=== PATIENT | male | born 1995 | race Caucasian/White ===

== ENCOUNTER 2017-02-21 | Emergency (ER) | payer OTHER ==
[~2017-02-21] VITALS: Ht 185.4 cm; Wt 70.9 kg
[2017-02-21 00:16] VITALS: TEMP 36.7; Ht 185.4 cm; Wt 70.9 kg
[2017-02-21] MEDS ORDERED: IBUPROFEN 600 MG TAB PO STA (00:37)
--- NOTE | 2017-02-21 00:44 | EMERGENCY ROOM VISIT NOTE ---
History Report prepared by Denilson: Donya Rangel Under the Supervision of: Dr. Tim Alas M.D. First contact with patient: 00:31 Chief Complaint: BACK PAIN Stated Complaint: PERSISTANT BACK AND SIDE PAIN History of Present Illness The patient is a 22 year old male who presents to the Emergency Room with complaints of worsening intermittent back pain starting a few weeks ago. 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 He was standing at the register today when the pain worsened. He is also having pain in his sides and RLQ. He experiences relief with Tylenol. He denies any change in bowel movement or urinary symptoms. He denies any past or recent back injuries. Source of History: patient Onset: few weeks ago Position: back Quality: other (pain) Timing: intermittent, worsening Modifying Factors (Relieving): tylenol Associated Symptoms: + abdominal pain, No urinary symptoms Note: Pt denies change in bowel movement. Review of Systems All systems have been listed, reviewed, and are negative other than those previously mentioned. Please see Additional Medical History Sheet. Past Medical & Surgical Medical Problems: (1) Asthma (2) Bronchitis (3) Lyme disease (4) Pneumonia (5) Vitamin D deficiency Family History Cancer Diabetes mellitus Hypertension Social History Smoking Status: Current Every Day Smoker Alcohol Use: occasionally Marital Status: in relationship Occupation Status: employed, [employer] student Current/Historical Medications Scheduled PRN Albuterol Hfa (Ventolin Hfa), 2 PUFFS INH Q6H PRN for SOB/Wheezing Allergies Coded Allergies: No Known Allergies (Unverified , 02/21/17) Physical Exam Vital Signs Date Time Temp Pulse Resp B/P (MAP) Pulse Ox O2 Delivery O2 Flow Rate FiO2 02/21/17 00:16 36.7 85 16 113/66 96 Room Air Physical Exam GENERAL: Patient appears to be in minimal distress. Patient awake, alert, oriented x 3. Patient follows commands. Patient does not appear toxic. Patient is adequately hydrated and well-nourished. SKIN: No erythema, pallor, cyanosis or rash HEENT: Normal head, pupils equal, reactive to light and accommodation. LUNGS: Clear to auscultation. No wheezes, no rales, no rhonchi. HEART: No murmurs. No gallops. No rubs ABDOMEN: Vague tenderness along the right side of the abdomen which radiates into the right groin. No hernias palpated. BACK: Tenderness around T12 right greater than left. No signs of trauma. No step off. EXTREMITIES: Straight leg raise negative bilaterally. Motor and sensory function are intact. NEUROLOGIC: Cranial nerves II-XII within normal limits. No gross motor sensory function deficits. Medical Decision & Procedures ER Provider Diagnostic Interpretation: X ray results are stated below per my interpretation: Thoracic spine X-ray: No fracture, dislocation, or subluxation noted. Laboratory Results Test 02/21/17 00:20 Urine Color YELLOW Urine Appearance CLOUDY (CLEAR) Urine pH 8.5 (4.5-7.5) Urine Specific [place] 1.015 (1.000-1.030) Urine Protein NEG (NEG) Urine Glucose (UA) NEG (NEG) Urine Ketones NEG (NEG) Urine Occult Blood NEG (NEG) Urine Nitrite NEG (NEG) Urine Bilirubin NEG (NEG) Urine Urobilinogen NEG (NEG) Urine Leukocyte Esterase NEG (NEG) Urine WBC (Auto) 0 /hpf (0-5) Urine RBC (Auto) 0-4 /hpf (0-4) Urine Hyaline Casts (Auto) 0 /lpf (0-5) Urine Epithelial Cells (Auto) 0-5 /lpf (0-5) Urine Bacteria (Auto) NEG (NEG) Laboratory results as stated above per my review. Medications Administered Medications (Trade) Dose Ordered Sig/Radha Route Start Time Stop Time Status Last Admin Dose Admin Ibuprofen (Motrin Tab) 600 mg NOW STAT PO 02/21/17 00:37 02/21/17 00:40 DC 02/21/17 00:44 600 MG ED Course 0032: Past medical records reviewed. The patient was evaluated in room A3. A complete history and physical examination was performed. 0037: Ibuprofen 600 mg PO. 0121: Upon reevaluation, the patient did not have any change in his pain. I discussed today's findings with him. He verbalized agreement of the treatment plan. He was discharged home. Medical Decision Nurses notes reviewed. Medical history sheet reviewed. Differential diagnosis includes but is not limited to: muscular strain, fracture, dislocation, subluxation, ruptured nucleus pulposus. X-rays of his lower thoracic spine were obtained. Urinalysis was clean. No deformities, fractures, dislocations or subluxations were identified by x-ray. The patient does not have an inguinal hernia. Straight leg raising was negative bilaterally. Pain seems to be most consistent with muscle/ligamentous strain. The patient was encouraged to continue ibuprofen on regular basis and apply heat intermittently to his back. The patient is to follow-up with [facility] Medication Reconcilliation Current Medication List: was personally reviewed by me Blood Pressure Screening Patient's blood pressure: Normal blood pressure Blood pressure disposition: Did not require urgent referral Impression Primary Impression: Low back strain Scribe Attestation The scribe's documentation has been prepared under my direction and personally reviewed by me in its entirety. I confirm that the note above accurately reflects all work, treatment, procedures, and medical decision making performed by me. Departure Information Dispostion Home / Self-Care Referrals No Doctor, Assigned (PCP) Patient Instructions My [facility] Additional Instructions Take 600 mg of ibuprofen every 6 hours or 800 mg every 8 hours. Apply heat intermittently to your back over the next 3 days. Follow-up at [facility] within the next 2 weeks. Avoid heavy lifting for the next 3 weeks.
[2017-02-21 00:51] LABS: MANUAL MICROSCOPIC REQUIRED? NO; REVIEW REQ? NO; URINE APPEARANCE CLOUDY (CLEAR); URINE BILIRUBIN NEG (NEG); URINE COLOR YELLOW; URINE EPITHELIAL CELL AUTO 0-5 /lpf (0-5); URINE NITRITE NEG (NEG); URINE PH 8.5 (4.5-7.5); URINE SPECIFIC GRAVITY 1.015 (1.000-1.030); UROBILINOGEN NEG (NEG); ZZUR CULT IF INDIC CLEAN CATCH NO
[2017-02-21] MEDS ORDERED: VNTHFA/IN INH (01:30)
[2017-02-21 01:35] VITALS: BP 117/59; PULSE 67; O2SAT 96
--- NOTE | 2017-02-21 08:06 | DIAGNOSTIC IMAGING REPORT ---
THORACIC SPINE 3 VIEWS ROUTINE CLINICAL HISTORY: Pain near T12. COMPARISON STUDY: No previous studies for comparison. FINDINGS: Alignment of the thoracic spine is anatomic. Vertebral body heights are maintained. No fracture or lesion is identified by radiography. Disc spaces are preserved. IMPRESSION: Unremarkable thoracic spine radiographs. Electronically signed by: Antonio Odom M.D. 02/21/2017 8:05 AM Dictated Date/Time: 02/21/2017 8:04 AM
== END 2017-02-21 01:35 | disposition home or self-care (01) ==
LOC: C.EDB 00:03 → C.EDA 01:35
DX: S39.012A Strain of muscle, fascia and tendon of lower back, initial encounter (principal); X58.XXXA Exposure to other specified factors, initial encounter; J45.909 Unspecified asthma, uncomplicated; F17.200 Nicotine dependence, unspecified, uncomplicated; Z80.9 Family history of malignant neoplasm, unspecified; Z82.49 Family history of ischemic heart disease and other diseases of the circulatory system; Z83.3 Family history of diabetes mellitus

== ENCOUNTER 2017-04-01 22:18 | Observation (INO) | payer OTHER ==
[~2017-04-01] VITALS: Ht 185.4 cm; Wt 72.9 kg
[~2017-04-01 22:18] MED LIST: VNTHFA/IN INH
[2017-04-01] MEDS ORDERED: KETOROLAC TROMETHAMINE 30 MG/ML VIAL IV STA (22:36)
[2017-04-01] MEDS ORDERED: ONDANSETRON INJ 2 MG/ML 2 ML VIAL IV STA (22:36)
[2017-04-01] MEDS ORDERED: SODIUM CHLORIDE 0.9% 1000ML 1,000 ML IV ONE (22:45)
[2017-04-01] MEDS ORDERED: OPTIRAY 320 IV PRN (22:45)
[2017-04-01 22:55] LABS: BASO % 0.4 %; BASO ABS # 0.03 K/uL (0-0.2); EOS ABS # 0.33 K/uL (0-0.5); HEMATOCRIT 45.7 % (42-52); HEMOGLOBIN 16.6 g/dL (14.0-18.0); IG# 0.02 K/uL (0.00-0.02); LYMPH % 27.3 %; LYMPH ABS # 2.28 K/uL (1.2-3.4); MEAN CELL VOLUME 89.8 fL (80-100); MEAN CORPUSCULAR HEMOGLOBIN 32.6 pg (25-34); MEAN CORPUSCULAR HGB CONC 36.3 g/dl (32-36); MEAN PLATELET VOLUME 10.7 fL (7.4-10.4); MONO % 6.3 %; MONO ABS # 0.53 K/uL (0.11-0.59); NEUT % 61.8 %; NEUT ABS # 5.16 K/uL (1.4-6.5); PLATELET COUNT 187 K/uL (130-400); RED CELL DISTRIBUTION WIDTH CV 12.2 % (11.5-14.5); RED CELL DISTRIBUTION WIDTH SD 39.5 fL (36.4-46.3); WHITE BLOOD COUNT 8.35 K/uL (4.8-10.8)
[2017-04-01 23:12] LABS: ALBUMIN 4.2 gm/dl (3.4-5.0); ALT/SGPT 28 U/L (12-78); BLOOD UREA NITROGEN 14 mg/dl (7-18); CARBON DIOXIDE 24 mmol/L (21-32); CREATININE 0.64 mg/dl (0.60-1.40); GLUCOSE 98 mg/dl (70-99); LIPASE 125 U/L (73-393); POTASSIUM 3.5 mmol/L (3.5-5.1); SODIUM 139 mmol/L (136-145)
[2017-04-01 23:15] LABS: ALKALINE PHOSPHATASE 80 U/L (45-117); AST/SGOT 26 U/L (15-37); TOTAL PROTEIN 7.1 gm/dl (6.4-8.2)
[2017-04-02] VITALS (9 sets, daily range): BP systolic 105–119; BP diastolic 62–70; PULSE 58–81; TEMP 36.3–37.1; O2SAT 96–99; Ht 185.4 cm; Wt 72.9 kg
[2017-04-02] MEDS ORDERED: ONDANSETRON INJ 2 MG/ML 2 ML VIAL IV STA (01:39)
[2017-04-02] MEDS ORDERED: HYDROmorphone INJ 0.5 MG/0.5 ML SYR IV STA (02:12)
[2017-04-02] MEDS ORDERED: PROMETHAZINE HCL INJ 12.5 MG in SODIUM CHLORIDE 0.9% 50ML 50 ML IV STA (05:56)
[2017-04-02] MEDS ORDERED: CEFOXITIN IV 2,000 MG in DEXTROSE 5% 50ML 50 ML IV SCH (06:00)
--- NOTE | 2017-04-02 06:25 | EMERGENCY ROOM VISIT NOTE ---
History First contact with patient: 22:27 Chief Complaint: ABDOMINAL PAIN Stated Complaint: ABD PAIN,NAUSEA,GROIN PAIN Nursing Triage Summary: Pt states he lifted something earlier today and started to have sharp abdominal pain that radiates to his groin. Pt states that the pain comes and goes. Pt has nausea when the pain peaks. Pt denies any issues with bowel or bladder. History of Present Illness The patient is a 22 year old male who presents to the Emergency Room with complaints of generalized abdominal pain that is radiating down into his groin. The patient states that his symptoms began earlier today as he was lifting objects with a friend. The patient states the pain does come and go and will often be sharp. He does have nausea without emesis when the pain is at its worst. He has not had difficulty using the bathroom. No fever or chills. No chest pain, chest tightness, or shortness of breath. He does not have a history of kidney stones or abdominal surgery in the past. His pain is currently rated a 3/10, but at its worst is rated an 8/10. Review of Systems More than 10 systems were reviewed and otherwise negative with the exception of history of present illness. Past Medical/Surgical History Medical Problems: (1) Acute appendicitis (2) Asthma (3) Bronchitis (4) Lyme disease (5) Pneumonia (6) Vitamin D deficiency Family History Cancer Diabetes mellitus Hypertension Social History Smoking Status: Never Smoker Alcohol Use: occasionally Marital Status: in relationship Occupation Status: employed, [employer] student Current/Historical Medications Scheduled PRN Albuterol Hfa (Ventolin Hfa), 2 PUFFS INH Q6H PRN for SOB/Wheezing Physical Exam Vital Signs Date Time Temp Pulse Resp B/P (MAP) Pulse Ox O2 Delivery O2 Flow Rate FiO2 04/02/17 07:25 96 Room Air 04/02/17 06:15 70 16 112/65 96 Room Air 04/02/17 04:38 64 16 118/58 97 Room Air 04/02/17 03:11 64 16 118/61 97 Room Air 04/02/17 01:45 64 16 135/69 97 Room Air 04/02/17 00:13 36.5 88 16 125/84 97 Room Air 04/01/17 22:19 36.7 90 16 137/75 96 Room Air Physical Exam VITALS: Vitals are noted on the nurse's note and reviewed by myself. Vital signs stable. GENERAL: Well-developed, well-nourished, white male, who is in no acute distress and resting comfortably. Patient is cooperative with the examination. HEART: Regular rate and rhythm without murmurs gallops or rubs. LUNGS: Clear to auscultation bilaterally without wheezes, rales or rhonchi. No retractions or accessory muscle use. ABDOMEN: Positive normal bowel sounds x 4. Soft with generalized. No focal tenderness on examination. No significant tenderness. MUSCULOSKELETAL: No muscle atrophy, erythema, or edema noted. Full range of motion without joint tenderness in all extremities. Medical Decision & Procedures ER Provider Diagnostic Interpretation: Preliminary Findings Only See Final Report For Complete Findings CT ABDOMEN & PELVIS With Contrast: Lower thorax is unremarkable. 2 cm low-density lesion within left hepatic lobe, which is incompletely characterized. Gallbladder, spleen, and pancreas are unremarkable. Punctate calcification within the left adrenal gland, likely remote injury or infection. Kidneys, ureters and urinary bladder are unremarkable. Appendix measures up to 9 mm with possible minimal adjacent stranding. Findings are nonspecific. Correlate clinically to exclude acute appendicitis. Bowel is unremarkable. No free fluid. No free air. No acute osseous abnormality. Laboratory Results 04/01/17 22:45 Red Blood Count 5.09, Mean Corpuscular Volume 89.8, Mean Corpuscular Hemoglobin 32.6, Mean Corpuscular Hemoglobin Concent 36.3, Mean Platelet Volume 10.7, Neutrophils (%) (Auto) 61.8, Lymphocytes (%) (Auto) 27.3, Monocytes (%) (Auto) 6.3, Eosinophils (%) (Auto) 4.0, Basophils (%) (Auto) 0.4, Neutrophils # (Auto) 5.16, Lymphocytes # (Auto) 2.28, Monocytes # (Auto) 0.53, Eosinophils # (Auto) 0.33, Basophils # (Auto) 0.03 04/01/17 22:45 Test 04/01/17 00:00 04/01/17 22:45 Urine Color DK YELLOW Urine Appearance CLEAR (CLEAR) Urine pH 7.0 (4.5-7.5) Urine Specific [place] 1.028 (1.000-1.030) Urine Protein NEG (NEG) Urine Glucose (UA) NEG (NEG) Urine Ketones TRACE (NEG) Urine Occult Blood NEG (NEG) Urine Nitrite NEG (NEG) Urine Bilirubin NEG (NEG) Urine Urobilinogen NEG (NEG) Urine Leukocyte Esterase NEG (NEG) White Blood Count 8.35 K/uL (4.8-10.8) Red Blood Count 5.09 M/uL (4.7-6.1) Hemoglobin 16.6 g/dL (14.0-18.0) Hematocrit 45.7 % (42-52) Mean Corpuscular Volume 89.8 fL (80-100) Mean Corpuscular Hemoglobin 32.6 pg (25-34) Mean Corpuscular Hemoglobin Concent 36.3 g/dl (32-36) Platelet Count 187 K/uL (130-400) Mean Platelet Volume 10.7 fL (7.4-10.4) Neutrophils (%) (Auto) 61.8 % Lymphocytes (%) (Auto) 27.3 % Monocytes (%) (Auto) 6.3 % Eosinophils (%) (Auto) 4.0 % Basophils (%) (Auto) 0.4 % Neutrophils # (Auto) 5.16 K/uL (1.4-6.5) Lymphocytes # (Auto) 2.28 K/uL (1.2-3.4) Monocytes # (Auto) 0.53 K/uL (0.11-0.59) Eosinophils # (Auto) 0.33 K/uL (0-0.5) Basophils # (Auto) 0.03 K/uL (0-0.2) RDW Standard Deviation 39.5 fL (36.4-46.3) RDW Coefficient of Variation 12.2 % (11.5-14.5) Immature Granulocyte % (Auto) 0.2 % Immature Granulocyte # (Auto) 0.02 K/uL (0.00-0.02) Anion Gap 10.0 mmol/L (3-11) Est Creatinine Clear Calc Drug Dose 188.3 ml/min Estimated GFR () > 150.0 Estimated GFR (Non- 140.0 BUN/Creatinine Ratio 21.4 (10-20) Calcium Level 9.0 mg/dl (8.5-10.1) Total Bilirubin 0.7 mg/dl (0.2-1) Aspartate Amino Transf (AST/SGOT) 26 U/L (15-37) Alanine Aminotransferase (ALT/SGPT) 28 U/L (12-78) Alkaline Phosphatase 80 U/L (45-117) Total Protein 7.1 gm/dl (6.4-8.2) Albumin 4.2 gm/dl (3.4-5.0) Globulin 2.9 gm/dl (2.5-4.0) Albumin/Globulin Ratio 1.4 (0.9-2) Lipase 125 U/L (73-393) Medications Administered Medications (Trade) Dose Ordered Sig/Radha Route Start Time Stop Time Status Last Admin Dose Admin Sodium Chloride 1,000 ml @ 999 mls/hr Q1H1M ONCE IV 04/01/17 22:45 04/01/17 23:45 DC 04/01/17 23:02 999 MLS/HR Ketorolac Tromethamine (Toradol Inj) 30 mg NOW STAT IV 04/01/17 22:36 04/01/17 22:37 DC 04/01/17 23:04 30 MG Ondansetron HCl (Zofran Inj) 4 mg NOW STAT IV 04/01/17 22:36 04/01/17 22:37 DC 04/01/17 23:02 4 MG Ondansetron HCl (Zofran Inj) 4 mg NOW STAT IV 04/02/17 01:39 04/02/17 01:40 DC 04/02/17 01:42 4 MG Hydromorphone HCl (Dilaudid Inj) 0.5 mg NOW STAT IV 04/02/17 02:12 04/02/17 02:13 DC 04/02/17 02:21 0.5 MG Promethazine HCl 12.5 mg/Sodium Chloride 50.5 ml @ 204 mls/hr NOW STAT IV 04/02/17 05:56 04/02/17 06:10 DC 04/02/17 06:10 204 MLS/HR Cefoxitin Sodium 2000 mg/Dextrose 60 ml @ 120 mls/hr PREOP@0600 IV 04/02/17 06:00 04/02/17 15:00 DC 04/02/17 09:31 120 MLS/HR ED Course Physical exam and history were performed. Nursing notes, EMR, and Medication List were personally reviewed. Patient appears to have some generalized abdominal pain with nausea over the past one day. The patient does do sound colicky in nature, but he does not have a history of stones or abdominal surgery. IV access was established and labs were obtained. Patient was hydrated and medicated as above. Because of his symptoms and a lipoma CT scan without contrast. The patient's blood work is as above and was reviewed. He does not have a significantly elevated white blood cell count, gross anemia, bandemia, or significant electrolyte imbalance. Transaminases are nondiagnostic. The patient CT scan is as above and may suggest appendicitis. Repeat abdominal examination shows the patient is having more right sided abdominal tenderness then initial presentation. He continues without distinct right lower quadrant tenderness, however the presentation is concerning considering his symptoms are evolving. The case was discussed with the on-call surgeon, Dr. Oliveira, who agreed to evaluate the patient here in the department. Please see Dr. Oliveira's dictation for further patient course, plan, and disposition. The chart was completed utilizing [employer] Speech Voice Recognition Software. Grammatical errors, random word insertions, pronoun errors, and incomplete sentences are an occasional consequence of this system due to software limitations, ambient noise, and hardware issues. Any formal questions or concerns about the content, text, or information contained within the body of this dictation should be directly addressed to the provider for clarification. . Medical Decision Differential diagnosis: Etiologies such as appendicitis, diverticulitis, PUD, biliary pathology, UTI, pancreatitis, obstruction, mesenteric ischemia, aortic pathology, infections, inflammatory bowel disease, renal colic, as well as others were entertained. Impression Primary Impression: Abdominal pain Departure Information Referrals No Doctor, Assigned (PCP) Patient Instructions My [facility]
--- NOTE | 2017-04-02 06:51 | DIAGNOSTIC IMAGING REPORT ---
ABD/PELVIS IV AND ORAL CONT CT DOSE: 276.47 mGy.cm HISTORY: Pain central abd pain radiating to groin TECHNIQUE: Multiaxial CT images of the abdomen and pelvis were performed following the use of intravenous and oral contrast. A dose lowering technique was utilized adhering to the principles of ALARA. COMPARISON STUDY: None. FINDINGS: Lung bases are clear. Liver spleen and pancreas are unremarkable. There is a small partially enhancing nodule anterior aspect right hepatic lobe suggesting a small benign hemangioma. Gallbladder is negative for distention. The upper abdominal bowel pattern is nonobstructive. Kidneys enhance uniformly. No evidence for hydronephrosis. The appendix is slightly at approximately 8 mm. Minimal periappendiceal fat stranding. No evidence for abscess collection or obstruction. The colonic bowel pattern is unremarkable. No free fluid within the pelvic cul-de-sac. IMPRESSION: 1. Findings suggesting a low-grade acute appendicitis. 2. No evidence for abscess collection or obstructive change. 3. Remainder the study is unremarkable. The above report was generated using voice recognition software. It may contain grammatical, syntax or spelling errors. Electronically signed by: Catalino Sarabia M.D. 04/02/2017 6:49 AM Dictated Date/Time: 04/02/2017 6:44 AM
--- NOTE | 2017-04-02 07:45 | History and Physical ---
History & Physical Date & Time of Service: Apr 02, 2017 at 07:39 Chief Complaint: Abd Pain,Nausea,Groin Pain Primary Care Physician: No Doctor, Assigned History of Present Illness Source: patient Trevin is a pleasant 22 year-old male who presented to emergency room late last evening with complaint of abdominal pain that began in the mid abdomen and radiated down to the right groin starting yesterday afternoon. Associated nausea but no vomiting. Denies of any fever, chills, sweats, chest pain, shortness of breath, difficulty breathing, diarrhea, constipation, blood in stools, difficulty urinating, or blood in urine. Never had this type of pain before. No previous abdominal surgeries. ER workup showed no leukocytosis , vitals stable. CT scan showed mildly distended appendix at 8 mm with mild periappendiceal inflammation, no evidence of perforation or abscess. Early acute appendicitis. Past Medical/Surgical History Past Medical History: (1) Asthma (2) Bronchitis (3) Lyme disease (4) Pneumonia (5) Vitamin D deficiency Past Surgical History: None Family History Cancer Diabetes mellitus Hypertension Social History Smoking Status: Never Smoker Marital Status: in relationship Occupational Status: employed, [employer] student Allergies Coded Allergies: No Known Allergies (Unverified , 04/01/17) Home Medications Scheduled PRN Albuterol Hfa (Ventolin Hfa), 2 PUFFS INH Q6H PRN for SOB/Wheezing Review of Systems Constitutional: No fever, No chills, No sweats Respiratory: No wheezing, No shortness of breath Cardiovascular: No chest pain Abdomen: + pain, + nausea, No vomiting, No diarrhea, No constipation, No GI bleeding Genitourinary - Male: No hematuria, No dysuria Endocrine: No fatigue Hematologic / Lymphatic: No abnormal bleeding/bruising Integumentary: No rash Physical Exam Vital Signs Date Time Temp Pulse Resp B/P (MAP) Pulse Ox O2 Delivery O2 Flow Rate FiO2 04/02/17 07:25 96 Room Air 04/02/17 06:15 70 16 112/65 96 Room Air 04/02/17 04:38 64 16 118/58 97 Room Air 04/02/17 03:11 64 16 118/61 97 Room Air 04/02/17 01:45 64 16 135/69 97 Room Air 04/02/17 00:13 36.5 88 16 125/84 97 Room Air 04/01/17 22:19 36.7 90 16 137/75 96 Room Air General Appearance: WD/WN, no apparent distress Head: normocephalic, atraumatic Eyes: sclerae normal ENT: hearing grossly normal Neck: trachea midline Respiratory/Chest: no respiratory distress, no accessory muscle use Abdomen/GI: soft, no organomegaly, no pulsatile mass, + tenderness (RLQ tenderness on palpation, no rigidity, guarding, rebound, or peritonitis) Back: normal inspection Extremities/Musculoskelatal: normal inspection Neurologic/Psych: alert, normal mood/affect, oriented x 3 Skin: normal color, warm/dry, no rash Diagnostics Laboratory Results Results Past 24 Hours Test 04/01/17 22:45 Range/Units White Blood Count 8.35 4.8-10.8 K/uL Red Blood Count 5.09 4.7-6.1 M/uL Hemoglobin 16.6 14.0-18.0 g/dL Hematocrit 45.7 42-52 % Mean Corpuscular Volume 89.8 80-100 fL Mean Corpuscular Hemoglobin 32.6 25-34 pg Mean Corpuscular Hemoglobin Concent 36.3 32-36 g/dl Platelet Count 187 130-400 K/uL Mean Platelet Volume 10.7 7.4-10.4 fL Neutrophils (%) (Auto) 61.8 % Lymphocytes (%) (Auto) 27.3 % Monocytes (%) (Auto) 6.3 % Eosinophils (%) (Auto) 4.0 % Basophils (%) (Auto) 0.4 % Neutrophils # (Auto) 5.16 1.4-6.5 K/uL Lymphocytes # (Auto) 2.28 1.2-3.4 K/uL Monocytes # (Auto) 0.53 0.11-0.59 K/uL Eosinophils # (Auto) 0.33 0-0.5 K/uL Basophils # (Auto) 0.03 0-0.2 K/uL RDW Standard Deviation 39.5 36.4-46.3 fL RDW Coefficient of Variation 12.2 11.5-14.5 % Immature Granulocyte % (Auto) 0.2 % Immature Granulocyte # (Auto) 0.02 0.00-0.02 K/uL Sodium Level 139 136-145 mmol/L Potassium Level 3.5 3.5-5.1 mmol/L Chloride Level 105 98-107 mmol/L Carbon Dioxide Level 24 21-32 mmol/L Anion Gap 10.0 3-11 mmol/L Blood Urea Nitrogen 14 7-18 mg/dl Creatinine 0.64 0.60-1.40 mg/dl Est Creatinine Clear Calc Drug Dose 188.3 ml/min Estimated GFR () > 150.0 Estimated GFR (Non- 140.0 BUN/Creatinine Ratio 21.4 10-20 Random Glucose 98 70-99 mg/dl Calcium Level 9.0 8.5-10.1 mg/dl Total Bilirubin 0.7 0.2-1 mg/dl Aspartate Amino Transf (AST/SGOT) 26 15-37 U/L Alanine Aminotransferase (ALT/SGPT) 28 12-78 U/L Alkaline Phosphatase 80 45-117 U/L Total Protein 7.1 6.4-8.2 gm/dl Albumin 4.2 3.4-5.0 gm/dl Globulin 2.9 2.5-4.0 gm/dl Albumin/Globulin Ratio 1.4 0.9-2 Lipase 125 73-393 U/L Diagnostic Radiology ABD/PELVIS IV AND ORAL CONT CT DOSE: 276.47 mGy.cm HISTORY: Pain central abd pain radiating to groin TECHNIQUE: Multiaxial CT images of the abdomen and pelvis were performed following the use of intravenous and oral contrast. A dose lowering technique was utilized adhering to the principles of ALARA. COMPARISON STUDY: None. FINDINGS: Lung bases are clear. Liver spleen and pancreas are unremarkable. There is a small partially enhancing nodule anterior aspect right hepatic lobe suggesting a small benign hemangioma. Gallbladder is negative for distention. The upper abdominal bowel pattern is nonobstructive. Kidneys enhance uniformly. No evidence for hydronephrosis. The appendix is slightly at approximately 8 mm. Minimal periappendiceal fat stranding. No evidence for abscess collection or obstruction. The colonic bowel pattern is unremarkable. No free fluid within the pelvic cul-de-sac. IMPRESSION: 1. Findings suggesting a low-grade acute appendicitis. 2. No evidence for abscess collection or obstructive change. 3. Remainder the study is unremarkable. Impression Assessment and Plan 22 year-old male who presented to emergency room with complaint of generalized abdominal pain with radiation to the right groin starting yesterday. Labs show no leukocytosis. CT scan showing mildly dilated appendix measuring 8 mm with mild periappendiceal inflammation, no evidence of abscess. Exam shows RLQ tenderness on palpation. Plan: Plan to take patient by to operating room for Laparoscopic appendectomy possible open. Patient informed of procedure and risks and informed consent obtained by Dr. Oliveira. Will order 2 gms Cefoxitin for preoperative antibiotics. Will be admitted to Med/Surg for observation post operatively. Dr. Oliveira has seen and examined patient, agrees with above. I interviewed and examined this patient and I agree wit the above note. His history, physical, CT scan are all consistent with appendicitis. I have recommended a laparoscopic appendectomy and I have explained the possible need to convert to an pen procedure. I explained the possible complications and answered his questions. he has signed a consent form. Advanced Directives Existing Living Will: No Existing Power of Fish Warden: No
[2017-04-02] MEDS ORDERED: MoRPHine SULFATE 4 MG/ML 1 ML CARP\\VIAL IV PRN (08:00)
[2017-04-02] MEDS ORDERED: OXYCODONE/ACETAMINOPHEN 5-325 TAB PO PRN (08:00)
[2017-04-02] MEDS ORDERED: CEFOXITIN SOD 2 GM VIAL IV ONE (08:00)
[2017-04-02] MEDS ORDERED: MoRPHine SULFATE 2 MG/ML CARP IV PRN (08:00)
[2017-04-02] MEDS ORDERED: ONDANSETRON INJ 2 MG/ML 2 ML VIAL IV PRN ×2 (08:00→09:00)
[2017-04-02] MEDS ORDERED: FENTANYL CITRATE INJ 50 MCG/1 ML 2 ML VIAL ONE (09:00)
[2017-04-02] MEDS ORDERED: KETOROLAC TROMETHAMINE 30 MG/ML VIAL IV. PRN (09:00)
[2017-04-02] MEDS ORDERED: ATROPINE SULFATE 0.1 MG/ML 5ML SYR IV PRN (09:00)
[2017-04-02] MEDS ORDERED: HYDROmorphone INJ 2 MG/ML SYR/VIAL IV PRN (09:00)
[2017-04-02] MEDS ORDERED: MIDAZOLAM HCL 1 MG/ML 2ML VIAL ONE (09:00)
[2017-04-02] MEDS ORDERED: CEFAZOLIN SOD 1 GM VIAL ONE (09:20)
[2017-04-02] MEDS ORDERED: HEPARIN SOD (PORCINE) 1000 UNIT/ML 10 ML VIAL ONE (09:20)
[2017-04-02] MEDS ORDERED: BUPIVACAINE 0.5 % 5 MG/1 ML MPF 30ML VIAL ONE (09:20)
[2017-04-02] MEDS ORDERED: GLYCOPYRROLATE INJ 0.2 MG/ML VIAL ONE (10:24)
[2017-04-02] MEDS ORDERED: ROCURONIUM BROMIDE 10 MG/ML 5 ML VIAL IV ONE (10:24)
[2017-04-02] MEDS ORDERED: METOCLOPRAMIDE HCL INJ 5 MG/ML 2 ML VIAL ONE (10:24)
[2017-04-02] MEDS ORDERED: NEOSTIGMINE METHYLSULFATE 5 MG/5 ML SYR ONE (10:24)
[2017-04-02] MEDS ORDERED: ONDANSETRON INJ 2 MG/ML 2 ML VIAL ONE (10:24)
[2017-04-02] MEDS ORDERED: PROPOFOL IV EMULSION 10 MG/ML 20 ML VIAL IV ONE (10:24)
[2017-04-02] MEDS ORDERED: LIDOCAINE HCL 2% 2 ML VIAL (20MG/ML) ONE (10:24)
--- NOTE | 2017-04-02 10:30 | [facility] Post Operative Brief Note ---
Immediate Operative Summary Operative Date Apr 02, 2017. Pre-Operative Diagnosis Appendicitis Post-Operative Diagnosis Same Procedure(s) Performed Laparoscopic Appendectomy Surgeon Dr Oliveira Die Sinker Surgeon(s) Ayesha Bernal PA-C Estimated Blood Loss 5mL Findings See dictation Specimens A. Appendix Complication(s) None Disposition Recovery Room / PACU
--- NOTE | 2017-04-02 10:52 | OPERATIVE REPORT ---
DATE OF OPERATION: 04/02/2017 PREOPERATIVE DIAGNOSIS: Acute appendicitis. POSTOPERATIVE DIAGNOSIS: Same. PROCEDURE: Laparoscopic appendectomy. SURGEON: Dr. Catalino Oliveira. DESK ATTENDANT: Ayesha Bernstein PA-C FINDINGS: The appendix was shorter than average. It was dilated all but for the proximal 1 cm. The base of the appendix was normal as was the cecum at the base of the appendix. There was no evidence of perforation or abscess. TECHNIQUE: The patient was given a general anesthetic and the area was prepped and draped in the usual sterile fashion. Transverse incision was made below the umbilicus, carried down through the subcutaneous tissue to the fascia, which was grasped with 2 Fabrizio clamps and incised between. The peritoneum was identified, incised, and the introducer was placed bluntly. The abdomen was then insufflated to a pressure of 15 mmHg with carbon dioxide. The lower midline introducer was placed under direct vision through a small skin incision. The patient was placed in Trendelenburg and airplane left position and the appendix was easily identified. The left lower quadrant introducer was then placed under direct vision through a small skin incision. Traction was placed anteriorly on the appendix. There were attachments on the peritoneal side that were taken down using blunt cautery dissection where appropriate. That allowed me to completely elevate the appendix and identify the base. I was then able to establish a plane between the base of the appendix and the mesoappendix. The mesoappendix was divided with the Endo-MAX stapler. That allowed me to confirm that I was at the base of the appendix and the base was normal. The appendix was then amputated off the cecum using an Endo-MAX. The appendix was placed into an Endobag and brought out through the left lower quadrant introducer site. That introducer was replaced and the right lower quadrant was irrigated and the irrigation was removed. The staple lines were inspected and there was no bleeding. Any irrigation that had entered the right upper quadrant or the pelvis was removed. The staple lines were again inspected and there was no bleeding. The gas was allowed to escape and the introducers were removed. The fascia of the umbilical and left lower quadrant introducer sites was closed with interrupted 0 Vicryl and skin of all the incisions was closed with 4-0 Monocryl in either an interrupted or running subcuticular fashion. The skin was anesthetized with 0.5% Marcaine. Skin was cleansed, dried, benzoin placed, and Steri-Strips applied. The estimated blood loss was 5 mL. Sponge, needle and instrument counts were correct prior to closure. The patient tolerated the surgical procedure without complication and was transferred to recovery. I attest to the content of the Intraoperative Record and any orders documented therein. Any exception s are noted below.
--- NOTE | 2017-04-02 11:08 | Discharge Instructions ---
Discharge Instructions Date of Service Apr 02, 2017. Admission Reason for Admission: Abd Pain,Nausea,Groin Pain Discharge Discharge Diagnosis / Problem: acute appendicitis Discharge Goals Goal(s): Decrease discomfort, Improve function Activity Recommendations Activity Limitations: as noted below No heavy lifting over 10 pounds for 2 weeks No strenuous activity until cleared by surgeon No submerging incisions underwater for 2 weeks (no bathing, swimming, or hot tubs) No driving while taking narcotic pain medication or until you are pain free . Instructions / Follow-Up Instructions / Follow-Up You may shower in 24 hours, leave steri strips on incisions for 7 days and then remove. They may fall off on their own that is okay Light activity and walking is encouraged to prevent blood clots from forming in the legs You will be given prescription for narcotic pain medication (Percocet). This medication may make you drowsy. You may take Ibuprofen in between doses of Percocet for mild pain. While you are taking Percocet avoid taking Tylenol as Percocet has Tylenol in it. You will need follow up in 2 weeks in surgical office. Please call [phone] to make an appointment Current Hospital Diet Patient's current hospital diet: Regular Diet Discharge Diet Recommended Diet: Regular Diet Procedures Procedures Performed: Laparoscopic Appendectomy Pending Studies Studies pending at discharge: yes List of pending studies: appendix pathology- will be reviewed at follow up visit Medical Emergencies . Who to Call and When: Medical Emergencies: If at any time you feel your situation is an emergency, please call 911 immediately. . Non-Emergent Contact Non-Emergency issues call your: Primary Care Provider, Surgeon Call Non-Emergent contact if: you have a fever, temperature is above 101, your pain is not controlled, your pain is worsening, your pain is unusual for you, wound has increased drainage, wound has increased redness, wound has increased pain . "Provider Documentation" section prepared by Ayesha Bernstein. . VTE Core Measure Inpt VTE Proph given/why not?: SCD's [place] Drug Monitoring Program Search Results: patient reviewed within database, no issues identified
[2017-04-02] MEDS ORDERED: KETOROLAC TROMETHAMINE 30 MG/ML VIAL ONE (11:09)
[2017-04-02] MEDS: SODIUM CHLORIDE 0.9% 1000ML 1,000 ML IV SCH (12:30)
[2017-04-02] MEDS: MoRPHine SULFATE 2 MG/ML CARP IV PRN ×3 (12:34→23:50)
--- NOTE | 2017-04-02 12:46 | Anesthesiology Progress Note ---
Anesthesia Post Op Note Date & Time Apr 02, 2017 at 12:45 Vital Signs Vital Signs Past 12 Hours Date Time Temp Pulse Resp B/P (MAP) Pulse Ox O2 Delivery O2 Flow Rate FiO2 04/02/17 12:18 36.3 19 113/70 (84) 99 Room Air 04/02/17 11:50 Room Air 04/02/17 11:50 36.5 61 16 107/70 (82) 99 Room Air 04/02/17 11:50 Room Air 04/02/17 11:36 111/64 04/02/17 11:33 57 16 04/02/17 11:33 57 16 98 04/02/17 11:32 36.5 04/02/17 11:31 113/66 04/02/17 11:28 62 14 04/02/17 11:28 60 14 99 04/02/17 11:27 70 14 97 04/02/17 11:27 70 14 04/02/17 11:25 106/69 04/02/17 11:22 66 16 04/02/17 11:22 64 16 98 04/02/17 11:21 106/70 04/02/17 11:18 63 16 04/02/17 11:18 63 16 99 04/02/17 11:16 117/70 04/02/17 11:13 63 16 04/02/17 11:13 64 16 96 04/02/17 11:12 65 16 97 04/02/17 11:12 65 16 04/02/17 11:11 116/69 04/02/17 11:07 77 13 97 04/02/17 11:07 78 13 04/02/17 11:06 109/67 04/02/17 11:02 81 14 04/02/17 11:02 82 14 96 04/02/17 11:01 107/70 04/02/17 10:57 82 16 04/02/17 10:57 82 16 129/71 96 04/02/17 10:57 36.3 83 12 129/71 97 Room Air 04/02/17 08:08 54 16 132/54 98 04/02/17 07:25 96 Room Air 04/02/17 06:15 70 16 112/65 96 Room Air 04/02/17 04:38 64 16 118/58 97 Room Air 04/02/17 03:11 64 16 118/61 97 Room Air 04/02/17 01:45 64 16 135/69 97 Room Air Notes Mental Status: alert / awake / arousable, participated in evaluation Pt Amnestic to Procedure: Yes Nausea / Vomiting: adequately controlled Pain: adequately controlled Airway Patency, RR, SpO2: stable & adequate BP & HR: stable & adequate Hydration State: stable & adequate Anesthetic Complications: no major complications apparent
[2017-04-02] MEDS ORDERED: IV FLUIDS COMPLETED PRN (15:15)
[2017-04-02] MEDS: OXYCODONE/ACETAMINOPHEN 5-325 TAB PO PRN (20:11)
[2017-04-03 03:00] VITALS: BP 107/61; PULSE 56; TEMP 36.6; O2SAT 98
[2017-04-03] MEDS: SODIUM CHLORIDE 0.9% 1000ML 1,000 ML IV SCH (03:11)
[2017-04-03 06:53] VITALS: BP 122/69; PULSE 70; TEMP 36.7; O2SAT 94
--- NOTE | 2017-04-03 07:23 | Anesthesiology Progress Note ---
Anesthesia Post Op Note Date & Time Apr 03, 2017 at 07:23 Vital Signs Pain Intensity: 5.0 Vital Signs Past 12 Hours Date Time Temp Pulse Resp B/P (MAP) Pulse Ox O2 Delivery O2 Flow Rate FiO2 04/03/17 06:53 36.7 70 19 122/69 (86) 94 Room Air 04/03/17 03:00 36.6 56 18 107/61 (76) 98 Room Air 04/02/17 23:13 36.7 61 18 112/63 (79) 98 Room Air 04/02/17 22:45 Room Air 04/02/17 19:52 37.1 58 18 108/62 (77) 98 Room Air 04/02/17 19:40 Room Air Notes Mental Status: alert / awake / arousable, participated in evaluation Pt Amnestic to Procedure: Yes Nausea / Vomiting: adequately controlled Pain: adequately controlled Airway Patency, RR, SpO2: stable & adequate BP & HR: stable & adequate Hydration State: stable & adequate Anesthetic Complications: no major complications apparent
[2017-04-03] MEDS: OXYCODONE/ACETAMINOPHEN 5-325 TAB PO PRN ×2 (08:16→13:45)
[2017-04-03] MEDS ORDERED: OXYC-57 PO (10:07)
[2017-04-03 10:48] VITALS: BP 113/68; PULSE 79; TEMP 36.7; O2SAT 95
--- NOTE | 2017-04-03 13:10 | Surgery Progress Note ---
Surgery Progress Note Date of Service Apr 03, 2017. Subjective Post OP Day: 1 (s/p lap appendectomy) + feeling well, + complaints (abdominal gas and incisional pain, controlled), + pain controlled, + diet, No nausea, No vomiting Objective Vital Signs: Date Time Temp Pulse Resp B/P (MAP) Pulse Ox O2 Delivery O2 Flow Rate FiO2 04/03/17 10:48 36.7 79 19 113/68 (83) 95 Room Air 04/03/17 08:16 Room Air 04/03/17 06:53 36.7 70 19 122/69 (86) 94 Room Air 04/03/17 03:00 36.6 56 18 107/61 (76) 98 Room Air 04/02/17 23:13 36.7 61 18 112/63 (79) 98 Room Air 04/02/17 22:45 Room Air 04/02/17 19:52 37.1 58 18 108/62 (77) 98 Room Air 04/02/17 19:40 Room Air 04/02/17 16:00 98 Room Air 04/02/17 14:48 36.6 81 18 119/66 (83) 98 Room Air 04/02/17 13:50 36.7 18 119/66 (83) 98 Room Air General Appearance: WD/WN, no apparent distress Head: normocephalic, atraumatic Neck: trachea midline Respiratory/Chest: no respiratory distress, no accessory muscle use Abdomen: normal bowel sounds, non distended, soft, + tenderness (at incision sites, appropriate) Incision(s): clean, dry, intact (steri strips present, small amount of dried blood present) Assessment & Plan POD # 1 s/p laparoscopic appendectomy -vitals stable - tolerating diet, pain controlled, urinating without difficulty Plan: Discharge home today Rx for Percocet as needed for pain Discharge instructions reviewed Follow up office in [address] Oliveira has seen and examined patient, agrees with above
[2017-04-03 13:30] VITALS: BP 113/68; PULSE 79; TEMP 36.7; O2SAT 95
--- NOTE | 2017-04-06 07:59 | Discharge Summary ---
Discharge Summary Dates Admission Date / Time: Apr 02, 2017 at 07:55 Discharge Date: Apr 03, 2017 Dispostion / Condition Discharge Disposition: Home Condition at Discharge: Good Principal Diagnosis (1) Acute appendicitis Problem List (1) Asthma Consultations / Procedures Consultations: None Procedures: Laparoscopic Appendectomy Pending Studies / Follow-Up Appendix pathology- will be reviewed at follow up visit Medication Reconciliation New Medications: Oxycodone/Acetaminophen 5MG/325MG (Percocet 5MG/325MG) Tab 1 TABLET PO Q4H PRN for Pain, #18 TAB Continued Medications: Albuterol Hfa (Ventolin Hfa) 200 Puffs/49863 Mcg Aers 2 PUFFS INH Q6H PRN for SOB/Wheezing Admission HPI Per the Admitting provider: Trevin is a pleasant 22 year-old male who presented to emergency room late last evening with complaint of abdominal pain that began in the mid abdomen and radiated down to the right groin starting yesterday afternoon. Associated nausea but no vomiting. Denies of any fever, chills, sweats, chest pain, shortness of breath, difficulty breathing, diarrhea, constipation, blood in stools, difficulty urinating, or blood in urine. Never had this type of pain before. No previous abdominal surgeries. ER workup showed no leukocytosis , vitals stable. CT scan showed mildly distended appendix at 8 mm with mild periappendiceal inflammation, no evidence of perforation or abscess. Early acute appendicitis. Admission Exam Per the Admitting provider: General Appearance: WD/WN, no apparent distress Head: normocephalic, atraumatic Eyes: sclerae normal ENT: hearing grossly normal Neck: trachea midline Respiratory/Chest: no respiratory distress, no accessory muscle use Abdomen/GI: soft, no organomegaly, no pulsatile mass, + tenderness (RLQ tenderness on palpation, no rigidity, guarding, rebound, or peritonitis) Back: normal inspection Extremities/Musculoskelatal: normal inspection Neurologic/Psych: alert, normal mood/affect, oriented x 3 Skin: normal color, warm/dry, no rash Hospital Course (1) Acute appendicitis Patient was taken to operating room for emergency department for laparoscopic appendectomy. Patient tolerated procedure well without any complications. Was found to have hyperemic and edeamatous appendix consistent with acute appendicitis. No abscess or perforation. He was then transferred to recovery room and then to medical/surgical floor in stable condition. Post operative orders included vegetarian diet, IV fluids, oral pain medication with IV pain for breakthrough, IV Zofran, and activity as tolerated. Patient was evaluated on POD # 1. He was feeling well, pain controlled with oral pain medication, ambulating and urinating without difficulty, vitals stable, no nausea or vomiting, and tolerating diet. Patient was discharged home in the afternoon on POD # 1 in stable condition. Discharge Instructions as given to patient Copies To Primary Care Provider: No Doctor, Assigned.
== END 2017-04-03 14:07 | disposition home or self-care (01) ==
LOC: C.EDB 22:20 → C.MSN 04-02 07:55 → ENRESERV 04-02 08:14
PROVIDERS: ADMIT Surgery; ATTEND Surgery
DX: K35.80 Unspecified acute appendicitis (principal); J45.909 Unspecified asthma, uncomplicated; Z80.3 Family history of malignant neoplasm of breast; Z83.3 Family history of diabetes mellitus; Z82.49 Family history of ischemic heart disease and other diseases of the circulatory system; Z79.899 Other long term (current) drug therapy

== ENCOUNTER 2017-05-31 18:29 | Emergency (ER) | payer OTHER ==
[~2017-05-31] VITALS: Ht 185.4 cm; Wt 73.8 kg
[~2017-05-31 18:29] MED LIST changes: +OXYC-57 PO
[2017-05-31 18:33] VITALS: TEMP 36.6; Ht 185.4 cm; Wt 73.8 kg
--- NOTE | 2017-05-31 19:00 | EMERGENCY ROOM VISIT NOTE ---
History Report prepared by Denilson: Mehrdad Collazo Under the Supervision of: Dr. Matt Castellanos M.D. First contact with patient: 18:41 Chief Complaint: MENTAL HEALTH EVALUATION Stated Complaint: HEADACHES,LETHAGIC,VIOLENT/SUICIDAL THOUGHTS History of Present Illness The patient is a 22 year old male who presents to the Emergency Room with complaints of constant mental distress that started a week ago. He rates his discomfort as a 3/10 in severity. The patient states that he has not felt himself "mentally". He reports that he has been having trouble falling asleep, but reports that he sleeps too much when he does fall asleep. The patient states that he has been back and forth between not eating at all and eating too much. He states that he has a history of anger problems and states that it feels "more prevalent now". The patient states that he had a panic attack a couple of days ago. He reports he went to [facility] for his panic attack where he was given Ativan for his symptoms and sent home. The patient states he has not had a plan for suicide, but has thought about suicide. He reports that he would never actually commit suicide. The patient states "I wish I was off the radar emotionally and socially. I want to live, but I want everyone else to think that I am ". He reports that he does not want to be hospitalized, but is unsure what he wants the outcome of his visit to be. The patient denies hurting anyone, alcohol or drug use, a suicidal plan, and any stresses triggering his mental state. He reports a history of anxiety that occurred two years ago. The patient reports he has talked to a doctor at [facility] about mental health issues, but states it was not strictly related to anxiety. The patient states his mother and father both take anxiety medications. He denies kidney issues, diabetes, liver problems. He reports a history of asthma. Source of History: patient Onset: a week ago Position: other (global) Symptom Intensity: 3/10 Quality: other (global) Timing: constant Note: Associated symptoms: sleeping too much, trouble falling asleep, periods of eating too much, periods of not eating, increased anger Review of Systems See HPI for pertinent positives & negatives. A total of 10 systems reviewed and were otherwise negative. Past Medical & Surgical Medical Problems: (1) Asthma (2) Bronchitis (3) Lyme disease (4) Pneumonia (5) Vitamin D deficiency Family History Cancer Diabetes mellitus Hypertension Social History Smoking Status: Former Smoker Alcohol Use: occasionally Marital Status: in relationship Occupation Status: employed, [employer] student Current/Historical Medications Scheduled PRN Albuterol Hfa (Ventolin Hfa), 2 PUFFS INH Q6H PRN for SOB/Wheezing Hydroxyzine Pamoate (Vistaril), 25-50 MG PO Q6H PRN for Anxiety/Agitation Lorazepam (Ativan), 0.5 MG PO Q8 PRN for Anxiety/Agitation Allergies Coded Allergies: No Known Allergies (Unverified , 05/31/17) Physical Exam Vital Signs Date Time Temp Pulse Resp B/P (MAP) Pulse Ox O2 Delivery O2 Flow Rate FiO2 05/31/17 22:26 66 16 105/67 99 05/31/17 18:33 36.6 92 18 134/82 98 Room Air Physical Exam GENERAL: Patient is in no acute distress. HEENT: No acute trauma, normocephalic atraumatic, mucous membranes moist, no nasal congestion, no scleral icterus. NECK: No stridor, no adenopathy, no meningismus, trachea is midline. LUNGS: Clear to auscultation bilaterally, no wheeze, no rhonchi, breath sounds equal. HEART: Without murmurs gallops or rubs, regular rate and rhythm. ABDOMEN: Soft, nontender, bowel sounds positive, no hernias, no peritonitis. EXTREMITIES: No cyanosis or edema, full range of motion of all the joints without pain or difficulty, no signs for acute trauma. NEUROLOGIC: Oriented x 3, no acute motor or sensory deficits, no focal weakness. SKIN: No rash, no jaundice, no diaphoresis. PSYCH: Cooperative and voluntary. Denies any suicidal plan or intent. Medical Decision & Procedures Laboratory Results 05/31/17 19:27 05/31/17 19:27 Test 05/31/17 18:40 05/31/17 19:27 Urine Color YELLOW Urine Appearance CLEAR (CLEAR) Urine pH 6.5 (4.5-7.5) Urine Specific [place] 1.013 (1.000-1.030) Urine Protein NEG (NEG) Urine Glucose (UA) NEG (NEG) Urine Ketones NEG (NEG) Urine Occult Blood NEG (NEG) Urine Nitrite NEG (NEG) Urine Bilirubin NEG (NEG) Urine Urobilinogen NEG (NEG) Urine Leukocyte Esterase NEG (NEG) Urine Opiates Screen NEG (NEG) Urine Methadone, Qualitative NEG (NEG) Urine Barbiturates NEG (NEG) Urine Phencyclidine (PCP) Level NEG (NEG) Ur Amphetamine/Methamphetamine NEG (NEG) MDMA (Ecstasy) Screen NEG (NEG) Urine Benzodiazepines Screen NEG (NEG) Urine Cocaine Metabolite NEG (NEG) Urine Marijuana (THC) NEG (NEG) Red Blood Count 4.96 M/uL (4.7-6.1) Mean Corpuscular Volume 88.5 fL (80-100) Mean Corpuscular Hemoglobin 32.3 pg (25-34) Mean Corpuscular Hemoglobin Concent 36.4 g/dl (32-36) RDW Standard Deviation 38.2 fL (36.4-46.3) RDW Coefficient of Variation 11.9 % (11.5-14.5) Mean Platelet Volume 10.6 fL (7.4-10.4) Anion Gap 6.0 mmol/L (3-11) Est Creatinine Clear Calc Drug Dose 145.2 ml/min Estimated GFR () 145.1 Estimated GFR (Non- 125.2 BUN/Creatinine Ratio 14.4 (10-20) Calcium Level 8.3 mg/dl (8.5-10.1) Total Bilirubin 0.9 mg/dl (0.2-1) Aspartate Amino Transf (AST/SGOT) 18 U/L (15-37) Alanine Aminotransferase (ALT/SGPT) 20 U/L (12-78) Alkaline Phosphatase 88 U/L (45-117) Total Protein 7.0 gm/dl (6.4-8.2) Albumin 4.0 gm/dl (3.4-5.0) Globulin 3.0 gm/dl (2.5-4.0) Albumin/Globulin Ratio 1.3 (0.9-2) Thyroid Stimulating Hormone (TSH) 0.908 uIu/ml (0.300-4.500) Salicylates Level < 1.7 mg/dl (2.8-20) Acetaminophen Level < 2 ug/ml (10-30) Ethyl Alcohol mg/dL < 3.0 mg/dl (0-3) Laboratory results reviewed by me. Medications Administered Medications (Trade) Dose Ordered Sig/Radha Route Start Time Stop Time Status Last Admin Dose Admin Hydroxyzine HCl (Vistaril Tab) 50 mg NOW STAT PO 05/31/17 22:04 05/31/17 22:05 DC 05/31/17 22:08 50 MG ED Course 1842: The patient was evaluated in room A05. A complete history and physical exam was performed. 1924: The patient is medically clear. 2137: Case management informed me that the patient has an appointment with [facility] Thursday. The patient will talk with his family doctors office to get an appointment in the next couple of days. 2203: Ordered Vistaril Tab 50 mg PO. 2210: Reevaluated the patient. Discussed results and discharge instructions: He verbalized understanding and agreement. The patient is ready for discharge. Medical Decision The patient is a 22 year old male who presents to the Emergency Room with complaints of constant mental distress that started a week ago. Differential diagnoses considered include drug or alcohol abuse, anxiety, depression, situational anxiety, thyroid disorder, electrolyte imbalance, suicidality. There is no leukocytosis or concerning anemia. No significant electrolyte abnormality, kidney failure, hepatitis. Patient appears to be in a euthyroid state. Urinalysis does not show infection. Urine tox is negative. Alcohol, Tylenol and aspirin levels are undetectable. Patient presents with increased anxiety and difficulty sleeping. He was not truly suicidal and had no plan to harm himself. He was looking for help as an outpatient. He did not want to stay in the hospital. The patient was seen by our psychiatry case management team. The patient will be discharged with Vistaril for anxiety to use as needed. He has an appointment in 2 days to see a therapist. He was encouraged to return to this ER for worsening symptoms or if truly feeling suicidal. Medication Reconcilliation Current Medication List: was personally reviewed by me Blood Pressure Screening Patient's blood pressure: Elevated blood pressure Blood pressure disposition: Elevated BP felt to be situational Impression Primary Impression: Anxiety Scribe Attestation The scribe's documentation has been prepared under my direction and personally reviewed by me in its entirety. I confirm that the note above accurately reflects all work, treatment, procedures, and medical decision making performed by me. Departure Information Dispostion Home / Self-Care Prescriptions Hydroxyzine Pamoate (VISTARIL) 25 Mg Cap 25-50 MG PO Q6H Y for Anxiety/Agitation, #15 [facility] Prov: Matt Castellanos M.D. 05/31/17 Referrals No Doctor, Assigned (PCP) Forms HOME CARE DOCUMENTATION FORM, IMPORTANT VISIT INFORMATION Patient Instructions [facility] Additional Instructions vistaril 1-2 tab every 6 hours for anxiety follow with [facility] as scheduled thursday follow with elvia md as discussed return for worsening symptoms or if feeling suicidal lab testing today was all ok
[2017-05-31 19:45] LABS: HEMATOCRIT 43.9 % (42-52); MEAN CELL VOLUME 88.5 fL (80-100); MEAN CORPUSCULAR HEMOGLOBIN 32.3 pg (25-34); MEAN CORPUSCULAR HGB CONC 36.4 g/dl (32-36); MEAN PLATELET VOLUME 10.6 fL (7.4-10.4); PLATELET COUNT 183 K/uL (130-400); RED CELL DISTRIBUTION WIDTH CV 11.9 % (11.5-14.5); RED CELL DISTRIBUTION WIDTH SD 38.2 fL (36.4-46.3); WHITE BLOOD COUNT 4.91 K/uL (4.8-10.8)
[2017-05-31 20:04] LABS: CALCIUM 8.3 mg/dl (8.5-10.1); CREATININE 0.84 mg/dl (0.60-1.40); POTASSIUM 3.5 mmol/L (3.5-5.1)
[2017-05-31] MEDS ORDERED: LORA-741 PO (20:38)
[2017-05-31] MEDS ORDERED: hydrOXYzine HCL 25 MG TAB PO STA (22:04)
[2017-05-31] MEDS ORDERED: HYDR1CAP85 PO (22:10)
[2017-05-31 22:26] VITALS: BP 105/67; PULSE 66; O2SAT 99
== END 2017-05-31 22:27 | disposition home or self-care (01) ==
LOC: C.EDB 18:31 → C.EDA 22:27
DX: F41.9 Anxiety disorder, unspecified (principal); R45.4 Irritability and anger; J45.909 Unspecified asthma, uncomplicated; Z87.891 Personal history of nicotine dependence; Z83.3 Family history of diabetes mellitus; Z82.49 Family history of ischemic heart disease and other diseases of the circulatory system